=== PATIENT | female | born 1940 | race Caucasian/White ===

== ENCOUNTER 2022-04-08 11:30 | Emergency (ER) | payer OTHER, MEDICAID ==
[~2022-04-08] VITALS: Ht 154.9 cm; Wt 54.4 kg
--- NOTE | 2022-04-08 11:30 | NUR ---
1124 BIBA ALS TO ER BED 6
[2022-04-08 11:50] VITALS: BP 99/51
--- NOTE | 2022-04-08 11:54 | NUR ---
PATIENT PRESENTS TO ED BIBAM S/P SYNCOPAL EPISODE. PATIENT VERBALIZED THAT SHE FELT DIZZY AND EXPERIENCED LOC. DENIES N/V/D; SKIN IS PINK/WARM/DRY; AAOX4 ; LUNGS CLEAR BL; HR EVEN AND REGULAR; PT DENIES ANY FEVER, CP, SOB, OR COUGH AT THIS TIME; PATIENT STATES PAIN OF 0/10 AT THIS TIME; VSS; PATIENT POSITIONED FOR COMFORT; HOB ELEVATED; BEDRAILS UP X2; BED DOWN. ER MD MADE AWARE OF PT STATUS.
[2022-04-08 12:38] LABS: BASOPHILS % (AUTO) 0.7 % (0.0-2.0); EOSINOPHILS # (AUTO) 0.2 K/uL (0-0.4); HEMATOCRIT 35.3 % (36-48); HEMOGLOBIN 11.9 g/dL (12.0-16.0); LYMPHOCYTES # (AUTO) 1.8 K/uL (2.5-16.5); LYMPHOCYTES % (AUTO) 35.8 % (20.5-51.1); MEAN CORPUSCULAR HEMOGLOBIN 32 pg (27-31); MEAN CORPUSCULAR HGB CONC 34 g/dL (33-37); MEAN CORPUSCULAR VOLUME 96.3 fL (80-94); MONOCYTES # (AUTO) 0.5 K/uL (0.8-1.0); MONOCYTES % (AUTO) 8.9 % (1.7-9.3); NEUTROPHILS # (AUTO) 2.6 K/uL (1.8-7.7); NEUTROPHILS % (AUTO) 51.6 % (42.2-75.2); PLATELET COUNT (AUTO) 196 K/uL (140-450); RED BLOOD CELL COUNT(AUTO) 3.67 MIL/uL (4.20-5.40); RED CELL DISTRIBUTION WIDTH 13.7 % (11.6-13.7); WHITE BLOOD COUNT (AUTO) 5.1 K/uL (4.8-10.8)
[2022-04-08 12:56] LABS: ANION GAP 10.1 (8-16); ASPARTATE AMINOTRANSFERASE 25 U/L (15-37); CARBON DIOXIDE 31.1 mmol/L (21-32); CHLORIDE 102 mmol/L (98-107); CREATININE 1.1 mg/dL (0.6-1.3); GLUCOSE 126 mg/dL (74-106); POTASSIUM 4.2 mmol/L (3.5-5.1); SODIUM SERUM 139 mmol/L (136-145); TOTAL BILIRUBIN 0.3 mg/dL (0.0-1.0); UREA NITROGEN, BLOOD 19 mg/dL (7-18)
--- NOTE | 2022-04-08 13:44 | NUR ---
PER DR. ACEVEDO, CT SPINE IS CLEARED, C COLLAR REMOVED. REPOSITIONED PATIENT AND MADE HER COMFORTABLE IN BED
--- NOTE | 2022-04-08 14:00 | NUR ---
PATIENT ASLEEP IN BED, NO S/S OF ACUTE DISTRESS
--- NOTE | 2022-04-08 17:00 | NUR ---
IV removed, catheter intact and site benign. Applied folded 4x4 gauze and tape to stop bleeding.
[2022-04-08 17:02] VITALS: BP 123/80
--- NOTE | 2022-04-08 17:07 | NUR ---
Patient discharged with v/s stable. Written and verbal after care instructions ABOUT FALL PREVENTION IN THE HOME, HEAD INJURY, AND SYNCOPE given and explained. Patient verbalized understanding. Ambulance Transport with to longterm. All questions addressed prior to discharge. Advised to follow up with PMD.
== END 2022-04-08 17:07 ==
LOC: MED 11:30
DX: S09.90XA Unspecified injury of head, initial encounter (principal); R55 Syncope and collapse; R42 Dizziness and giddiness; E11.9 Type 2 diabetes mellitus without complications; E03.9 Hypothyroidism, unspecified; I10 Essential (primary) hypertension; Z86.73 Personal history of transient ischemic attack (TIA), and cerebral infarction without residual deficits; W19.XXXA Unspecified fall, initial encounter; Y93.89 Activity, other specified; Y92.89 Other specified places as the place of occurrence of the external cause; Y99.8 Other external cause status
CPT/HCPCS: 70450; 71045; 72125; 80053; 85025; 93005; 99285